=== PATIENT | male | born 1945 | race Caucasian/White ===

== ENCOUNTER 2016-12-29 13:40 | Observation (INO) | payer MEDICARE, OTHER ==
[2016-12-29 14:50] LABS: APPEARANCE,URINE CLEAR; BILIRUBIN,URINE NEGATIVE (NEGATIVE); GLUCOSE, URINE NEGATIVE (NEGATIVE); KETONES,URINE NEGATIVE (NEGATIVE); LEUKOCYTE ESTERASE,URINE NEGATIVE (NEGATIVE); NITRITE,URINE NEGATIVE (NEGATIVE); PROTEIN,URINE NEGATIVE (NEGATIVE); URINE SPECIFIC GRAVITY 1.013; UROBILINOGEN,URINE NEGATIVE mg/dL (<2.0)
--- NOTE | 2016-12-29 15:12 | ER Document Report ---
ED General - General Chief Complaint: Fall Stated Complaint: FALL CONFUSION Time Seen by Provider: 12/29/16 15:07 Information source: Patient Notes: 71-year-old male who had a witnessed fall in the yard. Patient states that he was trimming some branches when he fell to the ground. Patient states he was lightheaded. Patient then does not remember the incident. It was witnessed. No seizure activity noted. No incontinence. Patient was supposedly confused for about 45 minutes after the incident according the at bedside. Patient states he had some transient right leg weakness which is also now resolved. Patient states after the incident he has had some posterior occipital headache. No headache before the incident. Patient denies any neck pain, back pain, chest pain, or abdominal pain. No recent illnesses, vomiting, or diarrhea. Patient does state that he has a history of headaches but this is different in quality. TRAVEL OUTSIDE OF THE [place] IN LAST 30 DAYS: No - HPI Onset: Just prior to arrival Onset/Duration: Sudden Quality of pain: Achy Severity: Moderate Pain Level: 1 Associated symptoms: Other - See above Exacerbated by: Denies Relieved by: Denies Similar symptoms previously: No Recently seen / treated by doctor: No - Related Data Allergies/Adverse Reactions: No Known Allergies Allergy (Unverified 12/29/16 13:58) Past Medical History - General Information source: Patient - Social History Smoking Status: Unknown if Ever Smoked Cigarette use (# per day): No Chew tobacco use (# tins/day): No Smoking Education Provided: No Frequency of alcohol use: None Drug Abuse: None Family History: Reviewed & Not Pertinent Review of Systems - Review of Systems Constitutional: denies: Fever EENT: denies: Eye discharge, Nose discharge Cardiovascular: denies: Chest pain, Palpitations Respiratory: denies: Short of breath Gastrointestinal: denies: Vomiting Genitourinary: denies: Dysuria Musculoskeletal: denies: Leg swelling Skin: Other - no hives. denies: Rash Neurological/Psychological: Other - no slurred speech -: Yes All other systems reviewed and negative Physical Exam - Vital signs Vitals: Temp Pulse Resp BP Pulse Ox 98.5 F 94 16 142/74 H 94 12/29/16 13:55 12/29/16 13:55 12/29/16 13:55 12/29/16 13:55 12/29/16 13:55 Notes: Reviewed vital signs and nursing note as charted by RN. CONSTITUTIONAL: Alert and oriented and responds appropriately to questions. Well -appearing; well-nourished HEAD: Normocephalic; atraumatic EYES: PERRL ENT: Normal nose; no rhinorrhea; moist mucous membranes; pharynx without lesions noted NECK: Supple without meningismus; no carotid bruit; non-tender; no cervical lymphadenopathy, no masses CARD: Regular rate and rhythm; no murmurs, no clicks, no rubs, no gallops; symmetric distal pulses RESP: Normal chest excursion without splinting or tachypnea; breath sounds clear and equal bilaterally ABD/GI: Normal bowel sounds; non-distended; soft, mildly tender to the right upper quadrant without rebound or guarding. Patient states he has a history of this previously BACK: The back appears normal and is non-tender to palpation, there is no CVA tenderness EXT: Normal ROM in all joints; non-tender to palpation; no cyanosis, no effusions, no edema SKIN: No acute lesions noted NEURO: CN II through XII are intact. Patient has 5 out of 5 bilateral upper and lower extremity strength with sensation intact to light touch PSYCH: The patient's mood and manner are appropriate. Grooming and personal hygiene are appropriate. Course - Re-evaluation Re-evalutation: 12/29/16 15:12 Given the above history and physical examination we will order basic labs, CT scan of the head, cardiac labs, EKG, liver panel, and lipase. Given that the patient has had a full resolution of his symptoms with an NIH score of 0, I do not believe that the patient is a TPA candidate at this time. 12/29/16 17:02 Patient still has no focal neurological deficits. CT scan of the head as recorded. Patient's pain is improved. Labs including troponin as recorded. Given the above history and physical examination I am concerned about a possible TIA or other vascular abnormality that will require further evaluation. Patient will be admitted to the hospitalist service. - Vital Signs Vital signs: Temp Pulse Resp BP Pulse Ox 98.5 F 94 16 142/74 H 98 12/29/16 13:55 12/29/16 13:55 12/29/16 13:55 12/29/16 13:55 12/29/16 15:02 - Laboratory Result Diagrams: 12/29/16 14:45 12/29/16 14:45 Laboratory results interpreted by me: 12/29/16 12/29/16 14:45 14:45 RDW 14.4 H Lymphocytes % 12.3 L Glucose 115 H Discharge - Discharge Clinical Impression: Right leg weakness Altered mental status Qualifiers: Altered mental status type: unspecified Qualified Code(s): R41.82 - Altered mental status, unspecified Condition: Fair Disposition: ADMITTED OBSERVATION Admitting Provider: Hospitalist Unit Admitted: Telemetry
[2016-12-29 15:13] LABS: URINE BARBITURATES SCREEN NEGATIVE; URINE METHADONE SCREEN NEGATIVE; URINE OPIATES LOW NEGATIVE; URINE PHENCYCLIDINE SCREEN NEGATIVE
[2016-12-29 15:16] LABS: ABSOLUTE EOSINOPHILS # (AUTO) 0.1 10^3/uL (0.0-0.6); ABSOLUTE MONOCYTES (AUTO) 0.7 10^3/uL (0.1-1.4); ABSOLUTE NEUT (AUTO) 6.2 10^3/uL (1.7-8.2); BASOPHILS % (AUTO) 0.6 % (0-2); EOSINOPHILS % (AUTO) 1.2 % (0-6); HEMATOCRIT 45.9 % (37.9-51.0); HEMOGLOBIN 15.7 g/dL (13.5-17.0); HGB HCT DIFFERENCE 1.2; LYMPHOCYTES % (AUTO) 12.3 % (13-45); MEAN CORPUSCULAR HEMOGLOBIN 29.1 pg (27.0-33.4); MEAN CORPUSCULAR HGB CONC 34.1 g/dL (32.0-36.0); MEAN CORPUSCULAR VOLUME 85 fl (80-97); RED BLOOD COUNT 5.38 10^6/uL (4.35-5.55); RED CELL DISTRIBUTION WIDTH 14.4 % (11.5-14.0); SEGMENTED NEUTROPHILS % (AUTO) 76.9 % (42-78); WHITE BLOOD COUNT 8.1 10^3/uL (4.0-10.5)
[2016-12-29 15:40] LABS: ALANINE AMINOTRANSFERASE 49 U/L (21-72); ALBUMIN 4.7 g/dL (3.5-5.0); ALCOHOL < 10 mg/dL (NONE DETECTED); ALKALINE PHOSPHATASE 64 U/L (38-126); ANION GAP 16 (5-19); ASPARTATE AMINO TRANSFERASE 36 U/L (17-59); BILIRUBIN,DIRECT 0.4 mg/dL (0.0-0.4); BILIRUBIN,TOTAL 0.7 mg/dL (0.2-1.3); BLOOD UREA NITROGEN 16 mg/dL (7-20); CALCIUM 9.7 mg/dL (8.4-10.2); CARBON DIOXIDE 26 mmol/L (22-30); CHLORIDE 100 mmol/L (98-107); CREATININE RESULT 0.83 mg/dL (0.52-1.25); GLUCOSE 115 mg/dL (75-110); MAGNESIUM 1.9 mg/dL (1.6-2.3); POTASSIUM 4.1 mmol/L (3.6-5.0); SODIUM 141.9 mmol/L (137-145); TOTAL PROTEIN 7.3 g/dL (6.3-8.2)
--- NOTE | 2016-12-29 16:51 | RADIOLOGY REPORT (SQ) ---
EXAM DESCRIPTION: CT HEAD WITHOUT COMPLETED DATE/TIME: 12/29/2016 4:38 pm REASON FOR STUDY: 6, fall/confusion/transient right leg weakness COMPARISON: None. TECHNIQUE: Axial images acquired through the brain without intravenous contrast. Images reviewed wi th bone, brain and subdural windows. Images stored on PACS. All CT scanners at this facility use dose modulation, iterative reconstruction, and/or weight based d osing when appropriate to reduce radiation dose to as low as reasonably achievable (ALARA). [facility]: Dose Right [facility]: CareDose [facility]: Dose Right [facility]: Teradose 4D [facility]: [employer] RADIATION DOSE: Up-to-date CT equipment and radiation dose reduction techniques were employed. CTDIv ol: 64.6 mGy. DLP: 1163 mGy-cm. mGy. LIMITATIONS: None. FINDINGS: VENTRICLES: Prominent ventricles secondary to involutional atrophy. CEREBRUM: No masses. No hemorrhage. No midline shift. No evidence for acute infarction. Few scatte red areas of low density in the white matter most likely chronic small vessel ischemic changes. Mild cortical atrophy. CEREBELLUM: No masses. No hemorrhage. No alteration of density. No evidence for acute infarction. EXTRAAXIAL SPACES: No fluid collections. No masses. ORBITS AND GLOBE: No intra- or extraconal masses. Normal contour of globe without masses. CALVARIUM: No fracture. PARANASAL SINUSES: No fluid or mucosal thickening. SOFT TISSUES: No mass or hematoma. OTHER: No other significant finding. IMPRESSION: Mild involutional changes of aging with chronic microvascular ischemia. No acute intrac ranial findings. EVIDENCE OF ACUTE STROKE: NO. COMMENT: Quality ID # [id number]: Final reports with documentation of one or more dose reduction techniques (e.g., Automated exposure control, adjustment of the mA and/or kV according to patient size, use of iterative reconstruction technique) TECHNICAL DOCUMENTATION: JOB ID: [id number] [employer]- All Rights Reserved
[2016-12-29] MEDS ORDERED: NORMAL SALINE 1000 ML 1,000 ML IV PRN (17:44)
[2016-12-29] MEDS ORDERED: DOCUSATE SODIUM 100 MG CAPSULE PO PRN (17:53)
[2016-12-29] MEDS ORDERED: ACETAMINOPHEN 650 MG SUPP.RECT PR PRN (17:53)
[2016-12-29] MEDS ORDERED: TEMAZEPAM 15 MG CAPSULE PO PRN (17:53)
[2016-12-29] MEDS ORDERED: ONDANSETRON HCL INJ/PF 4 MG/2 ML SDV IV PRN (17:53)
[2016-12-29] MEDS ORDERED: ACETAMINOPHEN 325 MG TABLET PO PRN (17:53)
[2016-12-29] MEDS ORDERED: HYDROCODONE/ACETAMINOPHEN 7.5-325 MG TABLET PO PRN (17:53)
[2016-12-29] MEDS ORDERED: MAGNESIUM HYDROXIDE SUSP 30 ML UDCUP PO PRN (17:53)
--- NOTE | 2016-12-29 18:31 | PDOC H&P ---
History of Present Illness Admission Date/PCP: CARLOS AGUIRRE MD Patient complains of: Fall with subsequent confusion History of Present Illness: DARREN FUENTES is a 71 year old male with no significant past medical history except for vertigo was brought to the emergency room after a witnessed fall/ syncope while walking in the yard. The patient stated that he was outside in the yard trimming branches of the tree when he suddenly became very lightheaded and dizzy. The spouse actually states that the patient screamed I am going to fall", and then fell to the ground without trying to break his fall. denies any associated seizure activity or incontinence. Even though the patient did not actually lose consciousness, he was reportedly very confused and disoriented for about 45 minutes after the event. He did not know where he was or what had happened. He also complained of transient right lower extremity weakness which was completely resolved by the time he presented to the emergency room In the emergency room the patient was still complaining of some occipital headache. Head CT scan did not show any acute abnormality. Patient denies any chest pain, shortness of breath, nausea, vomiting, diarrhea, neck pain, back pain, or any other focal neurologic deficit. The patient believes that he fell because he was looking upwards while trimming the branches, a situation that often provokes his vertigo Past Surgical History Past Surgical History: Reports: None Social History Information Source: Patient, POA - Power of Mixed [employer], Emergency Med Personnel Lives with: Spouse/Significant other Smoking Status: Never Smoker Frequency of Alcohol Use: Social Hx Recreational Drug Use: No Hx Prescription Drug Abuse: No - Advance Directive Surrogate healthcare decision maker:: Spouse Family History Family History: Reviewed & Not Pertinent Parental Family History Reviewed: Yes Children Family History Reviewed: No Sibling(s) Family History Reviewed.: No Medication/Allergy Allergies/Adverse Reactions: No Known Allergies Allergy (Unverified 12/29/16 13:58) Review of Systems All systems: reviewed and no additional remarkable complaints except as stated Constitutional: ABSENT: chills, fever(s), headache(s), weight gain, weight loss Eyes: ABSENT: visual disturbances Ears: ABSENT: hearing changes Cardiovascular: ABSENT: chest pain, dyspnea on exertion, edema, orthropnea, palpitations Respiratory: ABSENT: cough, hemoptysis Gastrointestinal: ABSENT: abdominal pain, constipation, diarrhea, hematemesis, hematochezia, nausea, vomiting Genitourinary: ABSENT: dysuria, hematuria Musculoskeletal: ABSENT: joint swelling Integumentary: ABSENT: rash, wounds Neurological: PRESENT: confusion, dizziness, focal weakness - Left leg, vertigo. ABSENT: abnormal gait, abnormal speech, syncope Psychiatric: ABSENT: anxiety, depression, homidical ideation, suicidal ideation Endocrine: ABSENT: cold intolerance, heat intolerance, polydipsia, polyuria Hematologic/Lymphatic: ABSENT: easy bleeding, easy bruising Physical Exam Vital Signs: Temp Pulse Resp BP Pulse Ox 98.5 F 94 16 142/74 H 98 12/29/16 13:55 12/29/16 13:55 12/29/16 13:55 12/29/16 13:55 12/29/16 15:02 Intake & Output 12/28/16 12/29/16 12/30/16 06:59 06:59 06:59 Weight 90.2 kg General appearance: PRESENT: no acute distress, cooperative, obese Head exam: PRESENT: atraumatic, normocephalic Eye exam: PRESENT: conjunctiva pink, EOMI, PERRLA. ABSENT: conjunctival injection, conjunctiva pale, nystagmus, periorbital swelling, scleral icterus, other Mouth exam: PRESENT: moist Teeth exam: PRESENT: poor dentation Throat exam: ABSENT: post pharyngeal erythema, tonsillar erythema, tonsillar exudate, tonsillogmegaly, other Respiratory exam: PRESENT: clear to auscultation henny, symmetrical. ABSENT: accessory muscle use, chest wall tenderness, crackles, decreased breath sounds, prolonged expiratory phas, rales, retraction, rhonchi, stridor, tachypnea, unlabored, wheezes, other Cardiovascular exam: PRESENT: RRR, +S1, +S2. ABSENT: bradycardia, clicks, diastolic murmur, gallop, irregular rhythm, rubs, systolic murmur, tachycardia, other Pulses: PRESENT: normal carotid pulses, normal radial pulses, normal dorsalis pedis pul GI/Abdominal exam: PRESENT: normal bowel sounds, soft. ABSENT: ascites, diminished bowel sounds, distended, firm, guarding, hernia, hyperactive bowel sounds, hypoactive bowel sounds, mass, Egnel's sign, organolmegaly, rebound, rigid, tenderness, other Rectal exam: PRESENT: deferred Extremities exam: PRESENT: full ROM. ABSENT: calf tenderness, clubbing, joint swelling, pedal edema, tenderness, +1 edema, +2 edema, other Musculoskeletal exam: PRESENT: ambulatory, full ROM Neurological exam: PRESENT: alert, awake, oriented to person, oriented to place , oriented to time, oriented to situation, reflexes normal, CN II-XII grossly intact, normal gait. ABSENT: altered, abnormal gait, ataxia, motor sensory deficit, aphasic, other Psychiatric exam: PRESENT: anxious Skin exam: PRESENT: intact, normal color Results Laboratory Results: 12/29/16 14:45 12/29/16 14:45 12/29/16 12/29/16 12/29/16 14:00 14:45 14:45 WBC 8.1 RBC 5.38 Hgb 15.7 Hct 45.9 MCV 85 MCH 29.1 MCHC 34.1 RDW 14.4 H Plt Count 168 Seg Neutrophils % 76.9 Lymphocytes % 12.3 L Monocytes % 9.0 Eosinophils % 1.2 Basophils % 0.6 Absolute Neutrophils 6.2 Absolute Lymphocytes 1.0 Absolute Monocytes 0.7 Absolute Eosinophils 0.1 Absolute Basophils 0.0 Sodium 141.9 Potassium 4.1 Chloride 100 Carbon Dioxide 26 Anion Gap 16 BUN 16 Creatinine 0.83 Est GFR ( Amer) > 60 Est GFR (Non-Af Amer) > 60 Glucose 115 H Calcium 9.7 Magnesium 1.9 Total Bilirubin 0.7 AST 36 ALT 49 Alkaline Phosphatase 64 Total Protein 7.3 Albumin 4.7 Lipase Urine Color YELLOW Urine Appearance CLEAR Urine pH 5.0 Ur Specific [place] 1.013 Urine Protein NEGATIVE Urine Glucose (UA) NEGATIVE Urine Ketones NEGATIVE Urine Blood NEGATIVE Urine Nitrite NEGATIVE Ur Leukocyte Esterase NEGATIVE Urine WBC (Auto) 2 Urine RBC (Auto) 1 12/29/16 14:45 WBC RBC Hgb Hct MCV MCH MCHC RDW Plt Count Seg Neutrophils % Lymphocytes % Monocytes % Eosinophils % Basophils % Absolute Neutrophils Absolute Lymphocytes Absolute Monocytes Absolute Eosinophils Absolute Basophils Sodium Potassium Chloride Carbon Dioxide Anion Gap BUN Creatinine Est GFR ( Amer) Est GFR (Non-Af Amer) Glucose Calcium Magnesium Total Bilirubin AST ALT Alkaline Phosphatase Total Protein Albumin Lipase 260.8 Urine Color Urine Appearance Urine pH Ur Specific [place] Urine Protein Urine Glucose (UA) Urine Ketones Urine Blood Urine Nitrite Ur Leukocyte Esterase Urine WBC (Auto) Urine RBC (Auto) 12/29/16 14:45 Troponin I < 0.012 EKG Comments: Reviewed personally by myself: No ST segment elevation Impressions: Head CT 12/29/16 15:07 IMPRESSION: Mild involutional changes of aging with chronic microvascular ischemia. No acute intracranial findings. EVIDENCE OF ACUTE STROKE: NO. Assessment & Plan - Diagnosis (1) Syncope and collapse Is this a current diagnosis for this admission?: Yes Plan: Syncope with post ictal confusion and right lower extremity weakness in a patient with history of vertigo and elevated d-dimer Differentials would include TIA, fall related to vertigo, syncope and collapse related to PE Head CT scan with no acute abnormalities. Brain MRI MRA, carotid ultrasound ordered We will start patient on aspirin, atorvastatin, and obtain PT OT consults CTPA to rule out PE given elevated d-dimer (2) Altered mental status Qualifiers: Altered mental status type: disorientation Qualified Code(s): R41.0 - Disorientation, unspecified Is this a current diagnosis for this admission?: Yes Plan: This has resolved prior to admission. (3) Right leg weakness Is this a current diagnosis for this admission?: Yes Plan: This has resolved prior to admission. Could possibly be due to TIA. Workup as above (4) Elevated d-dimer Is this a current diagnosis for this admission?: Yes Plan: D-dimer is elevated. Given the fall/syncope, will obtain a CTPA to rule out acute embolism (5) DVT prophylaxis Is this a current diagnosis for this admission?: Yes Plan: Subcutaneous Lovenox - Time Time Spent: 50 to 70 Minutes Medications reviewed and adjusted accordingly: Yes Anticipated discharge: Home Within: within 24 hours - Inpatient Certification Medical Necessity: Need For Continuous Telemetry Monitoring - Plan Summary Plan Summary: Plan to discharge home in a.m. if workup negative
--- NOTE | 2016-12-29 18:36 | RADIOLOGY REPORT (SQ) ---
EXAM DESCRIPTION: CTA CHEST COMPLETED DATE/TIME: 12/29/2016 6:18 pm REASON FOR STUDY: Syncope, elevated d-dimer COMPARISON: None. TECHNIQUE: CT scan of the chest performed using helical scanning technique with dynamic intravenous contrast injection. Images reviewed with lung, soft tissue and bone windows. Reconstructed coronal and sagittal MPR images reviewed. Additional 3 dimensional post-processing performed to develop Maximal Intensity Projection images (MA P). All images stored on PACS. All CT scanners at this facility use dose modulation, iterative reconstruction, and/or weight based d osing when appropriate to reduce radiation dose to as low as reasonably achievable (ALARA). [facility]: Dose Right [facility]: CareDose [facility]: Dose Right [facility]: Teradose 4D [facility]: [employer] CONTRAST TYPE AND DOSE: Contrast type and dose not recorded at this time Contrast bolus optimized for the pulmonary arteries. Not diagnostic for the aorta. RENAL FUNCTION: Creatinine 0.8 BUN 16 RADIATION DOSE: Up-to-date CT equipment and radiation dose reduction techniques were employed. CTDIv ol: 29.3 - 33.1 mGy. DLP: 1201 mGy-cm. . LIMITATIONS: None. FINDINGS: LUNGS AND PLEURA: No masses, infiltrates, pneumothorax. No pleural effusions, calcificati ons. AORTA AND GREAT VESSELS: No aneurysm. Contrast bolus not optimized for the aorta. HEART: No pericardial effusion. PULMONARY ARTERIES: No emboli visualized in the main pulmonary arteries or the segmental branches. HILAR AND MEDIASTINAL STRUCTURES: No identified masses or abnormal nodes. HARDWARE: None in the chest. UPPER ABDOMEN: No significant findings. Limited exam. THYROID AND OTHER SOFT TISSUES: No masses. No adenopathy. BONES: No acute or significant finding. 3D MIPS: Confirm above findings. OTHER: No other significant finding. IMPRESSION: NORMAL CTA OF THE CHEST. NO PULMONARY EMBOLI. COMMENT: Quality ID # [id number]: Final reports with documentation of one or more dose reduction techniques (e.g., Automated exposure control, adjustment of the mA and/or kV according to patient size, use of iterative reconstruction technique) TECHNICAL DOCUMENTATION: JOB ID: [id number] [employer]- All Rights Reserved
[2016-12-29] MEDS ORDERED: LORAZEPAM INJ 2 MG/1 ML VIAL ONE (19:46)
[2016-12-29] MEDS ORDERED: LORAZEPAM INJ 2 MG/1 ML VIAL IV PRN (19:50)
--- NOTE | 2016-12-29 21:10 | RADIOLOGY REPORT (SQ) ---
EXAM DESCRIPTION: MRI HEAD WITHOUT COMPLETED DATE/TIME: 12/29/2016 8:58 pm REASON FOR STUDY: ?TIA COMPARISON: None. TECHNIQUE: Multiplanar imaging includes non-contrasted T1, T2, FLAIR, and diffusion with ADC map seq uences. Images stored on PACS. LIMITATIONS: None. FINDINGS: ANATOMY: No anomalies. Normal vascular flow voids. Pituitary fossa normal. CSF SPACES: Atrophy induced prominence of ventricles and CSF spaces. CEREBRUM: High signal intensity lesions scattered throughout the white matter on FLAIR imaging with d istribution suggesting micro-vascular ischemic changes. No evidence of hemorrhage, mass, or extraaxi al fluid collection. POSTERIOR FOSSA: No signal alteration. No hemorrhage. No edema, masses or mass effect. Internal rashid tory canals, cerebello-pontine angles, mastoids normal. DIFFUSION IMAGING: Negative for acute or sub-acute infarction. ORBITS: No masses. Globes normal. PARANASAL SINUSES: No fluid levels. Mucosa normal. OTHER: No other significant finding. IMPRESSION: ATROPHY AND CHRONIC MICRO-VASCULAR ISCHEMIC CHANGES. OTHERWISE NORMAL MRI OF THE BRAIN W ITHOUT INTRAVENOUS GADOLINIUM CONTRAST. EVIDENCE OF ACUTE STROKE: NO. TECHNICAL DOCUMENTATION: JOB ID: [id number] [employer]- All Rights Reserved
--- NOTE | 2016-12-29 21:12 | RADIOLOGY REPORT (SQ) ---
EXAM DESCRIPTION: MRA HEAD WITHOUT COMPLETED DATE/TIME: 12/29/2016 8:59 pm REASON FOR STUDY: ?TIA COMPARISON: None. TECHNIQUE: Axial 3-D myxa-ee-qbuwza acquisition imaging performed through the brain in the area of t he [place] of [place]. Images reformatted using 3-D MIPS. LIMITATIONS: None. FINDINGS: SOURCE IMAGES: No unexpected findings on source images. No large masses. 3-D MIP: No aneurysm. No occlusions. No significant stenosis. OTHER: No other significant finding. IMPRESSION: NORMAL MRA OF THE [place] OF [place]. TECHNICAL DOCUMENTATION: JOB ID: [id number] [employer]- All Rights Reserved
[2016-12-29] MEDS ORDERED: ATORVASTATIN CALCIUM 40 MG TABLET PO SCH (22:00)
[2016-12-29] MEDS: FAMOTIDINE 20 MG TABLET PO SCH (22:05)
[2016-12-30 03:18] LABS: ABSOLUTE EOSINOPHILS # (AUTO) 0.1 10^3/uL (0.0-0.6); ABSOLUTE LYMPHOCYTES (AUTO) 0.9 10^3/uL (0.5-4.7); ABSOLUTE MONOCYTES (AUTO) 0.6 10^3/uL (0.1-1.4); ABSOLUTE NEUT (AUTO) 3.2 10^3/uL (1.7-8.2); BASOPHILS % (AUTO) 0.9 % (0-2); EOSINOPHILS % (AUTO) 1.9 % (0-6); HEMOGLOBIN 14.5 g/dL (13.5-17.0); HGB HCT DIFFERENCE 0.5; LYMPHOCYTES % (AUTO) 18.3 % (13-45); MEAN CORPUSCULAR HEMOGLOBIN 28.8 pg (27.0-33.4); MEAN CORPUSCULAR HGB CONC 33.7 g/dL (32.0-36.0); MEAN CORPUSCULAR VOLUME 86 fl (80-97); MONOCYTES % (AUTO) 11.8 % (3-13); RED BLOOD COUNT 5.03 10^6/uL (4.35-5.55); RED CELL DISTRIBUTION WIDTH 14.7 % (11.5-14.0); SEGMENTED NEUTROPHILS % (AUTO) 67.1 % (42-78); WHITE BLOOD COUNT 4.8 10^3/uL (4.0-10.5)
[2016-12-30 03:37] LABS: ALANINE AMINOTRANSFERASE 48 U/L (21-72); ALBUMIN 3.9 g/dL (3.5-5.0); ALKALINE PHOSPHATASE 40 U/L (38-126); ANION GAP 14 (5-19); ASPARTATE AMINO TRANSFERASE 27 U/L (17-59); BILIRUBIN,DIRECT 0.5 mg/dL (0.0-0.4); BILIRUBIN,TOTAL 0.6 mg/dL (0.2-1.3); BLOOD UREA NITROGEN 17 mg/dL (7-20); CALCIUM 9.1 mg/dL (8.4-10.2); CARBON DIOXIDE 24 mmol/L (22-30); CHLORIDE 103 mmol/L (98-107); CHOLESTEROL 146.24 mg/dL (0-200); Direct HDL 42 mg/dL (>40); GLUCOSE 191 mg/dL (75-110); POTASSIUM 4.1 mmol/L (3.6-5.0); SODIUM 140.9 mmol/L (137-145); TOTAL PROTEIN 6.1 g/dL (6.3-8.2); TRIGLYCERIDES 146 mg/dL (<150)
[2016-12-30 03:52] LABS: DIRECT LDL 87 mg/dL (<100)
--- NOTE | 2016-12-30 09:25 | EKG REPORT ---
SEVERITY:- ABNORMAL ECG - SINUS RHYTHM PROBABLE POSTERIOR INFARCT : Confirmed by: Shabnam Monte 30-Dec-2016 09:24:37
--- NOTE | 2016-12-30 09:25 | EKG REPORT ---
SEVERITY:- BORDERLINE ECG - SINUS RHYTHM BORDERLINE LEFT AXIS DEVIATION BORDERLINE T WAVE ABNORMALITIES : Confirmed by: Shabnam Monte 30-Dec-2016 09:24:52
[2016-12-30] MEDS ORDERED: ENOXAPARIN SODIUM INJ 40 MG/0.4 ML DISP.SYRIN SUBCUT SCH (10:00)
[2016-12-30] MEDS ORDERED: ASPIRIN 81 MG TABLET, ENT COATED PO SCH (10:00)
[2016-12-30] MEDS: FAMOTIDINE 20 MG TABLET PO SCH (10:05)
--- NOTE | 2016-12-30 11:46 | PDOC DISCHARGE SUMMARY ---
General - Admit/Disc Date/PCP Admission Date/Primary Care Provider: 12/29/16 17:03 CARLOS AGUIRRE MD Discharge Date: 12/30/16 - Discharge to home - Discharge Diagnosis (1) Syncope and collapse Is this a current diagnosis for this admission?: Yes (2) Altered mental status Is this a current diagnosis for this admission?: Yes (3) Right leg weakness Is this a current diagnosis for this admission?: Yes (4) Elevated d-dimer Is this a current diagnosis for this admission?: Yes - Additional Information Discharge Diet: Cardiac Discharge Activity: Activity As Tolerated Home Medications: Aspirin [Adult Low Dose Aspirin EC] 81 mg PO DAILY #90 tablet.dr 12/30/16 Atorvastatin Calcium [Lipitor 40 mg Tablet] 40 mg PO QHS #90 tablet 12/30/16 Finasteride [Proscar 5 mg Tablet] 5 mg PO DAILY 12/30/16 Hydrochlorothiazide [Hydrodiuril 12.5 mg Capsule] 12.5 mg PO DAILY 12/30/16 Meclizine HCl 25 mg PO Q6 PRN #30 tablet 12/30/16 Mirabegron [Myrbetriq] 25 mg PO DAILY 12/30/16 Pantoprazole Sodium [Protonix] 40 mg PO DAILY 12/30/16 Sertraline HCl [Zoloft 50 mg Tablet] 50 mg PO DAILY 12/30/16 Tamsulosin HCl [Flomax 0.4 mg Cap.sr] 0.4 mg PO QPM 12/30/16 Trazodone HCl [Desyrel] 100 mg PO QHS 12/30/16 Valsartan [Diovan 160 mg Tablet] 160 mg PO DAILY 12/30/16 History of Present Illness History of Present Illness: DARREN FUENTES is a 71 year old male with no significant past medical history except for vertigo was brought to the emergency room after a witnessed fall/ syncope while walking in the yard. The patient stated that he was outside in the yard trimming branches of the tree when he suddenly became very lightheaded and dizzy. The spouse actually states that the patient screamed I am going to fall", and then fell to the ground without trying to break his fall. denies any associated seizure activity or incontinence. Even though the patient did not actually lose consciousness, he was reportedly very confused and disoriented for about 45 minutes after the event. He did not know where he was or what had happened. He also complained of transient right lower extremity weakness which was completely resolved by the time he presented to the emergency room In the emergency room the patient was still complaining of some occipital headache. Head CT scan did not show any acute abnormality. Patient denies any chest pain, shortness of breath, nausea, vomiting, diarrhea, neck pain, back pain, or any other focal neurologic deficit. The patient believes that he fell because he was looking upwards while trimming the branches, a situation that often provokes his vertigo Hospital Course Hospital Course: Patient was admitted on 12/29/2016 for observation and telemetry. He did not present with any neurologic deficits on admission. Head CT scan, MRI/MRA of the brain did not reveal any acute abnormalities. Carotid ultrasound results are still pending. D-dimer was elevated. Chest CTA did not reveal any evidence of PE. Orthostatic vitals have been normal. EKGs have shown normal sinus rhythm. Patient has been on aspirin as well as on a statin. Total cholesterol is 146, LDL 87, HDL 42, triglycerides 146. Hemoglobin A1c 6.1. He will be discharged home to follow-up with his primary care physician. He is agreeable to being started on meclizine as needed for possible vertigo Physical Exam Vital Signs: Temp Pulse Resp BP Pulse Ox 97.6 F 62 17 150/81 H 97 12/30/16 07:25 12/30/16 07:25 12/30/16 07:25 12/30/16 07:25 12/30/16 07:25 Intake & Output 12/29/16 12/30/16 12/31/16 06:59 06:59 06:59 Intake Total 755 Balance 755 Weight 95.6 kg General appearance: PRESENT: no acute distress, cooperative, obese Head exam: PRESENT: atraumatic, normocephalic Eye exam: PRESENT: conjunctiva pink, EOMI, PERRLA. ABSENT: conjunctival injection, conjunctiva pale, nystagmus, periorbital swelling, scleral icterus, other Teeth exam: PRESENT: poor dentation Respiratory exam: PRESENT: clear to auscultation henny, symmetrical, unlabored. ABSENT: accessory muscle use, chest wall tenderness, crackles, decreased breath sounds, prolonged expiratory phas, rales, retraction, rhonchi, stridor, tachypnea, wheezes, other Cardiovascular exam: PRESENT: RRR, +S1, +S2. ABSENT: bradycardia, clicks, diastolic murmur, gallop, irregular rhythm, rubs, systolic murmur, tachycardia, other GI/Abdominal exam: PRESENT: normal bowel sounds, soft. ABSENT: ascites, diminished bowel sounds, distended, firm, guarding, hernia, hyperactive bowel sounds, hypoactive bowel sounds, mass, Engel's sign, organolmegaly, rebound, rigid, tenderness, other Neurological exam: PRESENT: alert, awake, oriented to person, oriented to place , oriented to time, oriented to situation, reflexes normal, CN II-XII grossly intact, normal gait Psychiatric exam: PRESENT: anxious Results Laboratory Results: 12/30/16 03:00 12/30/16 03:00 12/30/16 12/30/16 03:00 03:00 WBC 4.8 RBC 5.03 Hgb 14.5 Hct 43.0 MCV 86 MCH 28.8 MCHC 33.7 RDW 14.7 H Plt Count 147 L Seg Neutrophils % 67.1 Lymphocytes % 18.3 Monocytes % 11.8 Eosinophils % 1.9 Basophils % 0.9 Absolute Neutrophils 3.2 Absolute Lymphocytes 0.9 Absolute Monocytes 0.6 Absolute Eosinophils 0.1 Absolute Basophils 0.0 Sodium 140.9 Potassium 4.1 Chloride 103 Carbon Dioxide 24 Anion Gap 14 BUN 17 Creatinine 0.90 Est GFR ( Amer) > 60 Est GFR (Non-Af Amer) > 60 Glucose 191 H Calcium 9.1 Total Bilirubin 0.6 AST 27 ALT 48 Alkaline Phosphatase 40 Total Protein 6.1 L Albumin 3.9 Triglycerides 146 Cholesterol 146.24 LDL Cholesterol Direct 87 VLDL Cholesterol 29.0 HDL Cholesterol 42 12/29/16 12/30/16 12/30/16 21:15 03:00 09:35 Troponin I < 0.012 < 0.012 < 0.012 Impressions: Chest/Abdomen CTA 12/29/16 00:00 IMPRESSION: NORMAL CTA OF THE CHEST. NO PULMONARY EMBOLI. Head MRI 12/29/16 00:00 IMPRESSION: ATROPHY AND CHRONIC MICRO-VASCULAR ISCHEMIC CHANGES. OTHERWISE NORMAL MRI OF THE BRAIN WITHOUT INTRAVENOUS GADOLINIUM CONTRAST. EVIDENCE OF ACUTE STROKE: NO. Head CT 12/29/16 15:07 IMPRESSION: Mild involutional changes of aging with chronic microvascular ischemia. No acute intracranial findings. EVIDENCE OF ACUTE STROKE: NO. Brain MRI with MRA 12/29/16 17:50 IMPRESSION: NORMAL MRA OF THE [place]. Status: Image reviewed by me Qualifiers PATEINT BEING DISCHARGED WITH ANY OF THE FOLLOWING DIAGNOSIS?: No Plan Time Spent: Greater than 30 Minutes
--- NOTE | 2016-12-30 11:46 | RADIOLOGY REPORT (SQ) ---
EXAM DESCRIPTION: CAROTID DOPPLER COMPLETED DATE/TIME: 12/30/2016 10:58 am REASON FOR STUDY: ?TIA COMPARISON: CT brain 12/29/2016 MRI brain/ MRA [place] 12/29/2016 TECHNIQUE: Grayscale ultrasound, Doppler velocity and spectra, and color Doppler images acquired of the extra-cranial carotid and vertebral arteries. Images stored on PACS. LIMITATIONS: None. FINDINGS: RIGHT CAROTID CCA Velocities: Within normal limits. ICA Velocities Peak systolic 0.31 m/s. End diastolic 0.08 m/s. Proximal ICA/CCA peak systolic ratio 0.5. Spectra normal. No significant plaque. LEFT CAROTID CCA Velocities: Within normal limits. ICA Velocities Peak systolic 0.67 m/s. End diastolic 0.16 m/s. Proximal ICA/CCA peak systolic ratio 1.0. Spectra normal. No significant plaque. VERTEBRAL ARTERIES: No flow is detected in the right vertebral artery. Review of prior [place] [facility] [place] lis MRA exam demonstrates flow in the right intracranial vertebral artery and right PICA, which may b e retrograde from the left side. Antegrade pulsatile vertebral artery flow is seen in the left verte bral artery SUBCLAVIAN ARTERIES: Not examined OTHER: No other significant finding. IMPRESSION: No flow significant stenosis at the carotid bifurcations. No flow is detected in the right vertebral artery in the neck. Review of prior [place] MRA exam shows flow in the intracranial right vertebral artery, and PICA which may be retrograde from the left side. COMMENT: Quality ID #[id number]: Velocity criteria are extrapolated from the diameter data as defined by t [place] [employer] in Ultrasound Consensus Conference. Radiology 2003: 229; 340-346. TECHNICAL DOCUMENTATION: JOB ID: [id number]- All Rights Reserved
[2016-12-30 14:02] VITALS: BP 149/83
== END 2016-12-30 14:25 | disposition home or self-care (01) ==
LOC: ER 13:40 → EH 17:03 → 4S 21:00
PROVIDERS: ADMIT Emergency Medicine; ATTEND Emergency Medicine
DX: R55 Syncope and collapse (principal); R41.0 Disorientation, unspecified; R53.1 Weakness; R79.89 Other specified abnormal findings of blood chemistry; R51 Headache; W19.XXXA Unspecified fall, initial encounter; Y93.H2 Activity, gardening and landscaping; Y92.096 Garden or yard of other non-institutional residence as the place of occurrence of the external cause; Z79.899 Other long term (current) drug therapy; Z79.82 Long term (current) use of aspirin; R29.700 NIHSS score 0
CPT/HCPCS: 93005 ×2; 99285; 36415 ×2; 82962; 80307 ×2; 83690; 83735; 85025 ×2; 80053 ×2; 81001; 84484 ×2; 83036; 85379; 80061; 93880; 70551; 70544; 70450; 71275; 93010 ×2; A9270 ×4; J2060; J3490 ×2